=== PATIENT | female | born 1980 | race Caucasian/White ===

== ENCOUNTER 2017-07-14 09:00 | Inpatient (IN) | payer OTHER ==
[~2017-07-14] VITALS: Ht 170 cm; Wt 90.3 kg
[2017-07-14] MEDS ORDERED: RINGERS SOLUTION,LACTATED 1,000 ML IV ONE ×2 (09:14→11:36)
[2017-07-14] MEDS ORDERED: METOCLOPRAMIDE HCL 5 MG/ML 2 ML VIAL IVP ONE (09:15)
[2017-07-14] MEDS ORDERED: CITRIC ACID/SODIUM CITRATE 30 ML SOLUTION UDCUP PO ONE (09:15)
[2017-07-14] MEDS ORDERED: PREN1TAB80 PO (09:17)
[2017-07-14 10:16] LABS: BASOPHILS % (AUTO) 0.1 % (0.0-2.0); EOSINOPHILS % (AUTO) 0.5 % (1.0-6.0); HEMATOCRIT 39.8 % (36-46); HEMOGLOBIN 13.9 g/dL (12.0-16.0); LYMPHOCYTES # (AUTO) 1.4 K/uL (1.0-4.8); LYMPHOCYTES % (AUTO) 14.9 % (22.0-44.0); MEAN CORPUSCULAR HEMOGLOBIN 30.5 pg (26.0-34.0); MEAN CORPUSCULAR HGB CONC 34.8 G/dL (31.0-37.0); MEAN CORPUSCULAR VOLUME 88 fL (80-100); MONOCYTES # (AUTO) 0.6 K/uL (0.1-1.0); MONOCYTES % (AUTO) 6.3 % (2.0-9.0); NEUTROPHILS # (AUTO) 7.6 K/uL (1.8-7.7); NEUTROPHILS % (AUTO) 78.2 % (40.0-70.0); PLATELET COUNT (AUTO) 170 K/uL (150-450); RED BLOOD CELL COUNT(AUTO) 4.54 MIL/uL (4.00-5.20); RED CELL DISTRIBUTION WIDTH 14.4 % (11.5-14.5); WHITE BLOOD COUNT (AUTO) 9.7 K/uL (4.5-11.0)
[2017-07-14] MEDS ORDERED: FentaNYL CITRATE-PF 100 MCG/2 ML VIAL ONE (11:36)
[2017-07-14] MEDS ORDERED: CeFAZolin 2 GM/DEXTROSE 50 ML IV ONE (11:36)
[2017-07-14] MEDS ORDERED: MORPHINE SULFATE/PF 0.5 MG/ML 10 ML AMP ONE (11:36)
[2017-07-14] MEDS ORDERED: SODIUM CHLORIDE 0.9% 100 ML ONE (11:37)
[2017-07-14] MEDS ORDERED: FentaNYL CITRATE-PF 100 MCG/2 ML VIAL IVP PRN ×3 (12:45)
[2017-07-14] MEDS ORDERED: NALBUPHINE HCL 10 MG/ML VIAL IVP PRN ×3 (12:45)
[2017-07-14] MEDS ORDERED: PROMETHAZINE HCL 12.5 MG in SODIUM CHLORIDE 0.9% 50 ML IV PRN (12:45)
[2017-07-14] MEDS ORDERED: DiphenhydrAMINE HCL 50 MG/ML VIAL IM PRN (12:45)
[2017-07-14] MEDS ORDERED: KETOROLAC TROMETHAMINE 30 MG/ML VIAL IVP PRN (12:45)
[2017-07-14] MEDS ORDERED: ONDANSETRON HCL 4 MG/2 ML VIAL IVP PRN ×2 (12:45)
[2017-07-14] MEDS ORDERED: MEPERIDINE-PF 25 MG/ML SYRINGE IVP PRN (12:45)
[2017-07-14] MEDS ORDERED: DEXAMETHASONE SOD PHOS 4 MG/ML VIAL IVP PRN (12:45)
[2017-07-14] MEDS ORDERED: OXYGEN THERAPY IH SCH ×4 (12:45→20:00)
[2017-07-14] MEDS ORDERED: NALOXONE HCL 0.4 MG/ML VIAL IVP PRN (12:45)
[2017-07-14] MEDS ORDERED: ACETAMINOPHEN 1000 MG/ISO-OSM 100 ML IV ONE (12:45)
[2017-07-14] MEDS ORDERED: KETOROLAC TROMETHAMINE 30 MG/ML VIAL IVP ONE (12:45)
[2017-07-14] MEDS ORDERED: DiphenhydrAMINE HCL 50 MG/ML VIAL IVP PRN ×2 (12:45)
[2017-07-14] MEDS ORDERED: ACETAMINOPHEN/CODEINE 300-30 MG TABLET PO PRN (13:30)
[2017-07-14] MEDS ORDERED: LANOLIN 7 GM OINTMENT TP PRN (13:30)
[2017-07-14] MEDS: DEXTROSE 5%-0.45% SODIUM CHL 1,000 ML IV SCH ×3 (14:26→22:03)
[2017-07-14] MEDS: ACETAMINOPHEN 1000 MG/ISO-OSM 100 ML IV PRN (22:02)
[2017-07-15] MEDS ORDERED: EPHEDrine SULFATE 50 MG/ML VIAL IM ONE (00:23)
[2017-07-15] MEDS ORDERED: 0.9% SODIUM CHLORIDE 10 ML VIAL IVP ONE (00:23)
[2017-07-15] MEDS ORDERED: ONDANSETRON HCL 4 MG/2 ML VIAL IVP ONE (00:23)
[2017-07-15] MEDS ORDERED: PHENYLEPHRINE HCL 10 MG/ML VIAL IVP ONE (00:23)
[2017-07-15] MEDS ORDERED: OXYTOCIN 10 UNITS/ML VIAL IM ONE (00:23)
[2017-07-15] MEDS: DEXTROSE 5%-0.45% SODIUM CHL 1,000 ML IV SCH (05:45)
[2017-07-15] MEDS: ACETAMINOPHEN 1000 MG/ISO-OSM 100 ML IV PRN (05:45)
[2017-07-15] MEDS: IBUPROFEN 800 MG TABLET PO SCH ×3 (08:13→21:21)
[2017-07-15] MEDS: MAGNESIUM HYDROXIDE SUSPENSION 30 ML UDCUP PO SCH ×2 (08:13→21:23)
[2017-07-16] MEDS: IBUPROFEN 800 MG TABLET PO SCH ×4 (03:21→21:19)
[2017-07-16] MEDS: ACETAMINOPHEN/CODEINE 300-30 MG TABLET PO PRN ×3 (07:43→21:19)
[2017-07-16] MEDS: MAGNESIUM HYDROXIDE SUSPENSION 30 ML UDCUP PO SCH ×2 (09:01→21:19)
[2017-07-17] MEDS: IBUPROFEN 800 MG TABLET PO SCH ×2 (03:46→09:49)
[2017-07-17] MEDS: MAGNESIUM HYDROXIDE SUSPENSION 30 ML UDCUP PO SCH (09:49)
[2017-07-17] MEDS ORDERED: IBUP-2071 PO (11:12)
[2017-07-17] MEDS ORDERED: ACET1TAB12 PO (14:09)
== END 2017-07-17 14:30 | disposition home or self-care (01) | DRG 766 ==
LOC: OBSVTOIN 09:00 → 4S 09:00
PROVIDERS: ADMIT Obstetrics & Gynecology; ATTEND Obstetrics & Gynecology
PROC: 10D00Z1 Extraction of Products of Conception, Low, Open Approach (ICD-10-PCS; principal; 2017-07-14)
DX: O34.211 Maternal care for low transverse scar from previous cesarean delivery (principal); O69.81X0 Labor and delivery complicated by cord around neck, without compression, not applicable or unspecified; Z37.0 Single live birth; Z3A.39 39 weeks gestation of pregnancy
CPT/HCPCS: 86850; 86900; 86901; 87081; J0131; J0690; J2274; J2370; J2405; J2590; J2765; J3010; J3490; J7050; J7120